=== PATIENT | female | born 1970 | race Caucasian/White ===

== ENCOUNTER 2017-07-26 14:13 | Emergency (ER) | payer MEDICARE ==
[2017-07-26 14:25] VITALS: BP 136/78; PULSE 72; RESP 14; TEMP 98.6; O2SAT 100
--- NOTE | 2017-07-26 14:46 | PD ---
HPI Chief Complaint: Fall Time Seen by Provider: 14:45 Travel History International Travel<30 days: No Contact w/Intl Traveler<30days: No Traveled to known affect area: No History of Present Illness HPI 47-year-old female with legal blindness recently moved from [place] , with history of fusion of C4-5-6, in 2008, presents to the emergency department status post trip and fall in her new home last evening. Patient is complaining of low back pain, right hand pain, right shoulder pain, and neck pain. Patient states previous use of narcotics including Suboxone, which he has been off of for 2 weeks and does not want to return on 2. Patient feels tingling in the right hand similar to previous pain from her radicular symptoms. She is able to ambulate with difficulty. She denies numbness or tingling in the lower extremities. Denies bowel or bladder change. Denies headache or loss of consciousness. She states she did not hit her head. Pain is 7 out of 10. Patient denies chest or abdominal pain. She has no known drug allergies. [facility] Past Medical History Respiratory: Yes (COPD) Social History Alcohol Use: Yes Tobacco Use: No Substance Use: No Allergies-Medications (Allergen,Severity, Reaction): Coded Allergies: No Known Allergies (Unverified , 07/26/17) Reported Meds & Prescriptions Reported Meds & Active Scripts Active Baclofen 10 Mg Tab 10 Mg PO Q8HR Prednisone 20 Mg Tab 20 Mg PO BID 5 Days Review of Systems Except as stated in HPI: all other systems reviewed are Neg General / Constitutional: No: Fever Eyes: No: Visual changes HENT: No: Headaches Cardiovascular: No: Chest Pain or Discomfort Respiratory: No: Shortness of Breath Gastrointestinal: No: Abdominal Pain Genitourinary: No: Dysuria Musculoskeletal: Positive: Arthralgias, Limited ROM, Pain Skin: No Rash Neurologic: No: Weakness Psychiatric: No: Depression Endocrine: No: Polydipsia Hematologic/Lymphatic: No: Easy Bruising Physical Exam Narrative GENERAL: Patient appears in mild distress. SKIN: Warm and dry. Normal color. Normal turgor. No obvious signs of trauma noted. HEAD: Atraumatic. Normocephalic. Nontender. EYES: Pupils equal and round. No scleral icterus. No injection or drainage. ENT: No nasal bleeding or discharge. Mucous membranes pink and moist. No dental injury. Pharynx is clear. Airways patent NECK: Trachea midline. Patient has bony tenderness but no step-off. Cervical spine is placed in immobilization. CT scan is ordered. CARDIOVASCULAR: Regular rate and rhythm. RESPIRATORY: No accessory muscle use. Clear to auscultation. Breath sounds equal bilaterally. GASTROINTESTINAL: Abdomen soft, non-tender, nondistended. Hepatic and splenic margins not palpable. MUSCULOSKELETAL: Extremities without clubbing, cyanosis, or edema. No obvious deformities. 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 Patient has pain with palpation along the right shoulder bilaterally without specific point tenderness noted. Range of motion is intact. Patient has generalized lower lumbar pain without bony tenderness or point tenderness. Negative straight leg raise pain bilaterally in the lower extremities. NEUROLOGICAL: Awake and alert. No obvious cranial nerve deficits. Motor grossly within normal limits. Five out of 5 muscle strength in the arms and legs. Normal speech. PSYCHIATRIC: Appropriate mood and affect; insight and judgment normal. Data Data Last Documented VS Vital Signs Date Time Temp Pulse Resp B/P (MAP) Pulse Ox O2 Delivery O2 Flow Rate FiO2 07/26/17 14:25 98.6 72 14 136/78 (97) 100 Orders Orders Apply Cervical Collar (07/26/17 14:26) Ct Brain W/O Iv Contrast(Rout) (07/26/17 ) Ct Cerv Spine W/O Contrast (07/26/17 ) Shoulder, Complete (>2vws) (07/26/17 ) Hand, Complete (Rth3zuf) (07/26/17 ) Spine, Lumbar - Ltd (Ap & Lat) (07/26/17 ) Prednisone (Deltasone) (07/26/17 15:30) Baclofen (Lioresal) (07/26/17 15:30) Ed Discharge Order (07/26/17 16:18) [facility] Medical Decision Making Medical Screen Exam Complete: Yes Emergency Medical Condition: Yes Differential Diagnosis Mechanical fall. Right hand pain. Right shoulder pain. Neck pain. Low back pain. Possible fracture. Possible radicular symptoms. Narrative Course Patient is medically stable at time of exam. X-rays of the right hand, right shoulder, lumbar spine, and CT of the cervical spine ordered in triage. X-rays the lumbar spine, right hand, right shoulder, are within normal limits per radiologist. Cervical spine CT showed no acute process. Patient is given prednisone 40 mg p.o. now Patient is also given baclofen 20 mg p.o. Patient is continued on prednisone 20 mg twice daily 5 days. Patient also given baclofen 10 mg 3 times daily #30. Patient is recommended to wear the cervical collar for comfort as needed. Patient is to use heat and ice as discussed. Patient to follow-up with local primary care physician and neurologist/ neurosurgeon as needed. Diagnosis Primary Impression: Fall Qualified Codes: W19.XXXA - Unspecified fall, initial encounter Referrals: [facility] Primary [facility] PO Patient Instructions: General Instructions Additional Instructions: X-rays the lumbar spine, right hand, right shoulder, are within normal limits per radiologist. Cervical spine CT showed no acute process. Patient is given prednisone 40 mg p.o. now Patient is also given baclofen 20 mg p.o. Patient is continued on prednisone 20 mg twice daily 5 days. Patient also given baclofen 10 mg 3 times daily #30. Patient is recommended to wear the cervical collar for comfort as needed. Patient is to use heat and ice as discussed. Patient to follow-up with local primary care physician and neurologist/ neurosurgeon as needed. Med/Other Pt SpecificInfo: Prescription(s) given Scripts Baclofen (Baclofen) 10 Mg Tab 10 MG PO Q8HR, #30 TAB 0 Refills Prov: Chi Prince MD 07/26/17 Prednisone (Prednisone) 20 Mg Tab 20 MG PO BID for 5 Days, #10 TAB 0 Refills Prov: Chi Prince MD 07/26/17 Disposition: 01 DISCHARGE HOME Condition: Stable Hosea Chery Jul 26, 2017 14:46
--- NOTE | 2017-07-26 15:06 | RADRPT ---
EXAM DATE/TIME: 07/26/2017 14:47 [facility] COMPARISON: No previous studies available for comparison. INDICATIONS : Right hand pain; fall today. MEDICAL HISTORY : None. SURGICAL HISTORY : None. ENCOUNTER: Initial ACUITY: 1 day PAIN SCORE: 3/10 LOCATION: Right hand. FINDINGS: Three view examination of the right hand demonstrates no soft tissue swelling, dislocation, or fractu re. The carpal bones appear intact. Scattered degenerative changes. Bony mineralization is normal. CONCLUSION: No acute fracture. Suresh Laughlin MD on July 26, 2017 at 15:05 Board Certified Radiologist. This report was verified electronically.
--- NOTE | 2017-07-26 15:06 | RADRPT ---
EXAM DATE/TIME: 07/26/2017 14:58 [facility] COMPARISON: No previous studies available for comparison. INDICATIONS : Trauma. Fell 2 days ago. Head and neck pain. RADIATION DOSE: 33.32 CTDIvol (mGy) MEDICAL HISTORY : Chronic obstructive pulmonary disease. SURGICAL HISTORY : Fusion, cervical. ENCOUNTER: Initial ACUITY: 2 days PAIN SCALE: 7/10 LOCATION: cranial TECHNIQUE: Multiple contiguous axial images were obtained of the head. Using automated exposure control and adj ustment of the mA and/or kV according to patient size, radiation dose was kept as low as reasonably a chievable to obtain optimal diagnostic quality images. DICOM format image data is available electro nically for review and comparison. FINDINGS: CEREBRUM: The ventricles are normal for age. No evidence of midline shift, mass lesion, hemorrhage or acute in farction. No extra-axial fluid collections are seen. POSTERIOR FOSSA: The cerebellum and brainstem are intact. The 4th ventricle is midline. The cerebellopontine angle i s unremarkable. EXTRACRANIAL: The visualized portion of the orbits is intact. SKULL: The calvaria is intact. No evidence of skull fracture. CONCLUSION: No acute intracranial disease. Suresh Laughlin MD on July 26, 2017 at 15:04 Board Certified Radiologist. This report was verified electronically.
--- NOTE | 2017-07-26 15:07 | RADRPT ---
EXAM DATE/TIME: 07/26/2017 14:48 [facility] COMPARISON: No previous studies available for comparison. INDICATIONS : Low back pain; fall today. MEDICAL HISTORY : None. SURGICAL HISTORY : None. ENCOUNTER: Initial ACUITY: 1 day PAIN SCORE: 5/10 LOCATION: Lumbar spine. FINDINGS: Two view examination was performed. There are five non-rib bearing vertebral bodies. The vertebral bodies are in normal alignment without evidence of subluxation or scoliosis. Degenerative disc diseas e at L2-3. Minimal wedging at L1.. The pedicles are intact. Bony mineralization is normal. No frac ture is identified. CONCLUSION: 1. Minimal wedging at L1 likely physiologic. 2. No compression fracture. 3. Degenerative changes L2-3. Suresh Laughlin MD on July 26, 2017 at 15:06 Board Certified Radiologist. This report was verified electronically.
--- NOTE | 2017-07-26 15:13 | RADRPT ---
EXAM DATE/TIME: 07/26/2017 14:45 [facility] COMPARISON: No previous studies available for comparison. INDICATIONS : Right shoulder pain; fall today. MEDICAL HISTORY : None. SURGICAL HISTORY : None. ENCOUNTER: Initial ACUITY: 1 day PAIN SCORE: 9/10 LOCATION: Right shoulder. FINDINGS: 4 views of the right shoulder demonstrate no fracture or dislocation. The acromioclavicular joint is intact but demonstrates mild osteoarthritis change. The visualized soft tissues demonstrate no abnorm ality. Visualized portions of the right lung are clear. No displaced rib fracture is seen. Cervical spine barth rdware is present. CONCLUSION: No acute right shoulder abnormality is identified. Jung Rinaldi MD on July 26, 2017 at 15:11 Board Certified Radiologist. This report was verified electronically.
[2017-07-26] MEDS ORDERED: BACLOFEN 20 MG TAB PO ONE (15:30)
[2017-07-26] MEDS ORDERED: predniSONE 20 MG TAB PO ONE (15:30)
--- NOTE | 2017-07-26 16:03 | RADRPT ---
EXAM DATE/TIME: 07/26/2017 14:58 [facility] COMPARISON: No previous studies available for comparison. INDICATIONS : Trauma. Fell 2 days ago. Head and neck pain. RADIATION DOSE: 17.87 CTDIvol (mGy) MEDICAL HISTORY : Chronic obstructive pulmonary disease. SURGICAL HISTORY : Fusion, cervical. ENCOUNTER: Initial ACUITY: 2 days PAIN SCALE: 7/10 LOCATION: neck TECHNIQUE: Volumetric scanning of the cervical spine was performed. Multiplanar reconstructions in the sagittal, coronal and oblique axial planes were performed. Using automated exposure control and adjustment o f the mA and/or kV according to patient size, radiation dose was kept as low as reasonably achievable to obtain optimal diagnostic quality images. DICOM format image data is available electronically f or review and comparison. FINDINGS: The sagittal reconstructions demonstrate normal alignment and normal prevertebral soft tissues. The d ens is intact and there is a normal atlantoaxial relationship. The axial images demonstrate that the vertebral bodies and posterior elements are intact. The soft ti ssues are within normal limits. There is no evidence of acute fracture or malalignment. CONCLUSION: Negative trauma CT. Charles Garg MD on July 26, 2017 at 16:00 Board Certified Radiologist. This report was verified electronically.
[2017-07-26] MEDS ORDERED: BACL10TA PO (16:18)
[2017-07-26] MEDS ORDERED: PRED20 PO (16:18)
== END 2017-07-26 17:14 | disposition home or self-care (01) ==
LOC: NEPD 14:13
DX: M54.5 Low back pain (principal); M79.641 Pain in right hand; M25.511 Pain in right shoulder; M54.2 Cervicalgia; R20.2 Paresthesia of skin; M51.36 Other intervertebral disc degeneration, lumbar region; H54.8 Legal blindness, as defined in USA
CPT/HCPCS: 70450; 72100; 72125; 73030; 73130; 99284; J7512

== ENCOUNTER 2017-07-29 20:00 | Emergency (ER) | payer MEDICARE, MEDICAID ==
[~2017-07-29] VITALS: Ht 167.6 cm; Wt 76.0 kg
[~2017-07-29 20:00] MED LIST: BACL10TA PO; PRED20 PO
[2017-07-29 20:19] VITALS: BP 109/56; PULSE 93; RESP 18; TEMP 98.3; O2SAT 100
[2017-07-29] MEDS ORDERED: SODIUM CHLOR 0.9% 1000 ML INJ 1,000 ML IV SCH (22:45)
[2017-07-29] MEDS ORDERED: KETOROLAC TROMETHAMINE 30 MG/ML (IVP) VIAL IVP ONE (22:45)
[2017-07-29] MEDS ORDERED: SODIUM CHLORIDE 0.9% FLUSH 10 ML FLUSH IV FLUSH PRN (22:45)
[2017-07-29 23:32] LABS: AUTOMATED NEUTROPHIL # 6.7 TH/MM3 (1.8-7.7); BASOPHIL # 0.1 TH/MM3 (0-0.2); BASOPHIL % 0.6 % (0.0-2.0); EOSINOPHIL # 0.1 TH/MM3 (0-0.4); EOSINOPHIL % 0.8 % (0.0-4.0); HEMATOCRIT 39.9 % (35.0-46.0); HEMOGLOBIN 13.8 GM/DL (11.6-15.3); LYMPH % 36.3 % (9.0-44.0); LYMPHOCYTE # 4.2 TH/MM3 (1.0-4.8); MEAN CELL VOLUME 88.8 FL (80.0-100.0); MEAN CORPUSCULAR HEMOGLOBIN 30.8 PG (27.0-34.0); MEAN CORPUSCULAR HGB CONC 34.7 % (32.0-36.0); MONO % 5.2 % (0.0-8.0); MONOCYTE # 0.6 TH/MM3 (0-0.9); NEUT % 57.1 % (16.0-70.0); PLATELET COUNT 327 TH/MM3 (150-450); RED BLOOD COUNT 4.49 MIL/MM3 (4.00-5.30); WHITE BLOOD COUNT 11.7 TH/MM3 (4.0-11.0)
[2017-07-29 23:36] LABS: INTERNATIONAL NORMALIZED RATIO 1.2 RATIO; PROTHROMBIN TIME - PATIENT 11.7 SEC (9.8-11.6)
[2017-07-29] MEDS ORDERED: BUPR4MIS SL (23:41)
[2017-07-29 23:44] LABS: BILIRUBIN, URINE NEG (NEG); BLOOD, URINE LARGE (NEG); GLUCOSE,URINE NEG (NEG); KETONE, URINE NEG (NEG); MUCUS URINE FEW /lpf (OCC); NITRITE,URINE NEG (NEG); PH, URINE 6.5 (5.0-8.5); SQUAMOUS EPITHELIAL CELL URINE 1 /hpf (0-5); URINE COLOR YELLOW (YELLW/STRAW); URINE LEUKOCYTE ESTERASE MOD (NEG)
[2017-07-29 23:51] LABS: ALKALINE PHOSPHATASE 41 U/L (45-117); TOTAL BILIRUBIN ADULT 0.4 MG/DL (0.2-1.0); TOTAL PROTEIN 7.2 GM/DL (6.4-8.2)
[2017-07-30 00:15] LABS: ALBUMIN 4.2 GM/DL (3.4-5.0); ALT (GPT) 9 U/L (10-53); AST (GOT) 10 U/L (15-37); BICARBONATE 24.3 MEQ/L (21.0-32.0); BLOOD UREA NITROGEN 11 MG/DL (7-18); CALCIUM 8.6 MG/DL (8.5-10.1); CHLORIDE 109 MEQ/L (98-107); GLOMERULAR FILTRATION RATE 90 ML/MIN (>89); GLUCOSE,RANDOM 103 MG/DL (74-106); SODIUM (NA) 139 MEQ/L (136-145)
--- NOTE | 2017-07-30 00:59 | PD ---
HPI Chief Complaint: Psychiatric Symptoms Time Seen by Provider: 22:37 Travel History International Travel<30 days: No Contact w/Intl Traveler<30days: No Traveled to known affect area: No History of Present Illness HPI Patient is a 47 year old female who comes in complaining of abdominal pain. She says she is normally on Suboxone, but someone put it into storage, and she has not had it in 2 weeks. She says she has had the right-sided abdominal pain for the past few days. She also complains of chronic pain all over. She denies fever or chills. She has not had any nausea or vomiting. She has not taken anything else for her pain. Severity is mild to moderate. [facility] Past Medical History Anxiety: Yes Depression: Yes Glaucoma: Yes Medical other: Yes (legally blind) Respiratory: Yes (COPD) ?: Not Past Surgical History Gynecologic Surgery: Yes (TUBAL LIGATION ) Neurologic Surgery: Yes (ANTERIOR CERVICAL FUSION AND "SKULL" SX?) Other Surgery: Yes (BILAT EYE SX WITH "SHUNTS" PER PT ) Social History Alcohol Use: Yes (occ) Tobacco Use: No Substance Use: No Allergies-Medications (Allergen,Severity, Reaction): Coded Allergies: diphenhydramine (Verified Adverse Reaction, Unknown, UNKNOWN, 07/29/17) R/T TBI Reported Meds & Prescriptions Reported Meds & Active Scripts Active Reported Suboxone Sublingual Film (Buprenorphine-Naloxone Sublingual Film) 4-1 Mg Film 1 Film SL Unique ID number required: Review of Systems Except as stated in HPI: all other systems reviewed are Neg General / Constitutional: No: Fever, Chills HENT: No: Headaches, Lightheadedness Cardiovascular: No: Chest Pain or Discomfort Respiratory: No: Shortness of Breath Gastrointestinal: Positive: Abdominal Pain, No: Nausea, Vomiting Musculoskeletal: Positive: Pain, No: Edema Skin: No Rash, No Change in Pigmentation Neurologic: No: Weakness, Dizziness Physical Exam Narrative GENERAL: Awake and alert, in no acute distress. SKIN: Focused skin assessment warm/dry. No wounds or signs of infection. HEAD: Atraumatic. Normocephalic. EYES: Pupils equal and round. No scleral icterus. EOMI. ENT: Mucous membranes pink and moist. NECK: Trachea midline. No JVD. CARDIOVASCULAR: Regular rate and rhythm. No murmur appreciated. RESPIRATORY: No accessory muscle use. Clear to auscultation. Breath sounds equal bilaterally. GASTROINTESTINAL: Abdomen soft, nondistended. Minimal tenderness to the RUQ, no rebound or guarding. MUSCULOSKELETAL: No obvious deformities. No clubbing. No cyanosis. No edema. NEUROLOGICAL: Awake and alert. No obvious cranial nerve deficits. Motor grossly within normal limits. Normal speech. PSYCHIATRIC: Appropriate mood and affect; insight and judgment normal. Data Data Last Documented VS Vital Signs Date Time Temp Pulse Resp B/P (MAP) Pulse Ox O2 Delivery O2 Flow Rate FiO2 07/29/17 20:19 98.3 93 18 109/56 (73) 100 Orders Orders Complete Blood Count With Diff (07/29/17 22:45) Comprehensive Metabolic Panel (07/29/17 22:45) Lipase (07/29/17 22:45) Prothrombin Time / Inr (Pt) (07/29/17 22:45) Act Partial Throm Time (Ptt) (07/29/17 22:45) Urinalysis - C+S If Indicated (07/29/17 22:45) Ct Abd/Pel W Iv Contrast(Rout) (07/29/17 22:45) Iv Access Insert/Monitor (07/29/17 22:45) Ecg Monitoring (07/29/17 22:45) Oximetry (07/29/17 22:45) Sodium Chlor 0.9% 1000 Ml Inj (Ns 1000 M (07/29/17 22:45) Sodium Chloride 0.9% Flush (Ns Flush) (07/29/17 22:45) Ketorolac Inj (Toradol Inj) (07/29/17 22:45) Labs Laboratory Tests Test 07/29/17 22:55 White Blood Count 11.7 TH/MM3 Red Blood Count 4.49 MIL/MM3 Hemoglobin 13.8 GM/DL Hematocrit 39.9 % Mean Corpuscular Volume 88.8 FL Mean Corpuscular Hemoglobin 30.8 PG Mean Corpuscular Hemoglobin Concent 34.7 % Red Cell Distribution Width 14.0 % Platelet Count 327 TH/MM3 Mean Platelet Volume 8.0 FL Neutrophils (%) (Auto) 57.1 % Lymphocytes (%) (Auto) 36.3 % Monocytes (%) (Auto) 5.2 % Eosinophils (%) (Auto) 0.8 % Basophils (%) (Auto) 0.6 % Neutrophils # (Auto) 6.7 TH/MM3 Lymphocytes # (Auto) 4.2 TH/MM3 Monocytes # (Auto) 0.6 TH/MM3 Eosinophils # (Auto) 0.1 TH/MM3 Basophils # (Auto) 0.1 TH/MM3 CBC Comment DIFF FINAL Differential Comment Prothrombin Time 11.7 SEC Prothromb Time International Ratio 1.2 RATIO Activated Partial Thromboplast Time 23.5 SEC Urine Color YELLOW Urine Turbidity CLEAR Urine pH 6.5 Urine Specific Apex 1.019 Urine Protein TRACE mg/dL Urine Glucose (UA) NEG mg/dL Urine Ketones NEG mg/dL Urine Occult Blood LARGE Urine Nitrite NEG Urine Bilirubin NEG Urine Urobilinogen LESS THAN 2.0 MG/DL Urine Leukocyte Esterase MOD Urine RBC /hpf Urine WBC 3 /hpf Urine Squamous Epithelial Cells 1 /hpf Urine Mucus FEW /lpf Microscopic Urinalysis Comment CULT NOT INDICATED Blood Urea Nitrogen 11 MG/DL Creatinine 0.70 MG/DL Random Glucose 103 MG/DL Total Protein 7.2 GM/DL Albumin 4.2 GM/DL Calcium Level 8.6 MG/DL Alkaline Phosphatase 41 U/L Aspartate Amino Transf (AST/SGOT) 10 U/L Alanine Aminotransferase (ALT/SGPT) 9 U/L Total Bilirubin 0.4 MG/DL Sodium Level 139 MEQ/L Potassium Level 3.7 MEQ/L Chloride Level 109 MEQ/L Carbon Dioxide Level 24.3 MEQ/L Anion Gap 6 MEQ/L Estimat Glomerular Filtration Rate 90 ML/MIN Lipase 244 U/L [facility] Medical Decision Making Medical Screen Exam Complete: Yes Emergency Medical Condition: Yes Differential Diagnosis cholecystitis vs pancreatitis vs cholelithiasis vs GERD vs drug seeking Narrative Course Patient is a 47-year-old female who comes in complaining of right upper quadrant pain. Patient repeatedly mentions that she has lost her Suboxone and she has a lot of chronic pain issues. Exam shows minimal right upper quadrant tenderness. IV established, labs sent. Labs show no acute abnormalities. Given IV fluids and Toradol. CT abdomen and pelvis ordered. Diagnosis Primary Impression: Abdominal pain Qualified Codes: R10.11 - Right upper quadrant pain Lynne Peace MD Jul 30, 2017 00:59
[2017-07-30] MEDS ORDERED: IOHEXOL 350 MG/ML 10 ML VIAL (for RAD DIAG) IVCONTRAST ONE (01:11)
--- NOTE | 2017-07-30 01:37 | RADRPT ---
EXAM DATE/TIME: 07/30/2017 00:56 [facility] COMPARISON: No previous studies available for comparison. INDICATIONS : Right upper abdominal pain. IV CONTRAST: 100 cc Omnipaque 350 (iohexol) IV ORAL CONTRAST: No oral contrast ingested. RADIATION DOSE: 8.89 CTDIvol (mGy) MEDICAL HISTORY : Chronic obstructive pulmonary disease. SURGICAL HISTORY : Fusion, cervical. ENCOUNTER: Initial ACUITY: 1 day PAIN SCALE: 4/10 LOCATION: Right abdomen TECHNIQUE: Volumetric scanning of the abdomen and pelvis was performed. Using automated exposure control and ad justment of the mA and/or kV according to patient size, radiation dose was kept as low as reasonably achievable to obtain optimal diagnostic quality images. DICOM format image data is available electro nically for review and comparison. FINDINGS: LOWER LUNGS: The visualized lower lungs are clear. LIVER: Homogeneous density without lesion. There is no dilation of the biliary tree. No calcified gallston es in a contracted gallbladder. SPLEEN: Normal size without lesion. PANCREAS: Within normal limits. KIDNEYS: Normal in size and shape. There is no mass, stone or hydronephrosis. ADRENAL GLANDS: Within normal limits. VASCULAR: There is no aortic aneurysm. BOWEL/MESENTERY: No dilated loops of small or large bowel. The appendix is identified in the right lower quadrant and has a normal appearance. No evidence of free fluid. ABDOMINAL WALL: Within normal limits. RETROPERITONEUM: There is no lymphadenopathy. BLADDER: No wall thickening or mass. REPRODUCTIVE: Anteverted uterus. INGUINAL: There is no lymphadenopathy or hernia. MUSCULOSKELETAL: Within normal limits for patient age. CONCLUSION: Negative CT abdomen/pelvis with contrast. Javi Ramon MD on July 30, 2017 at 1:34 Board Certified Radiologist. This report was verified electronically.
[2017-07-30] MEDS ORDERED: ZOFR4TAB PO (02:00)
[2017-07-30] MEDS ORDERED: ONDANSETRON HCL 4 MG/2 ML VIAL IV PUSH ONE (02:00)
[2017-07-30] MEDS ORDERED: CEPH-460 PO (02:00)
--- NOTE | 2017-07-30 02:05 | PD ---
Physical Exam Date Seen by Provider: Jul 30, 2017 Time Seen by Provider: 02:02 Narrative GENERAL: This is a well-nourished, well-developed patient, in no apparent distress. SKIN: No rashes, ecchymoses or lesions. Warm and dry. HEAD: Atraumatic. Normocephalic. EYES: PERRL, EOMI, no discharge or injection. No scleral icterus. EARS: Clear NOSE: Nasal turbinates appear normal. THROAT: Mucosa pink and moist. Airway patent. NECK: Trachea midline. supple, moves head freely. LUNGS: Clear to auscultation. CV: Regular in rhythm. ABDOMEN: Soft nontender. No guarding or rebound. EXT: No clubbing cyanosis or edema. Data Data Last Documented VS Vital Signs Date Time Temp Pulse Resp B/P (MAP) Pulse Ox O2 Delivery O2 Flow Rate FiO2 07/29/17 20:19 98.3 93 18 109/56 (73) 100 Orders Orders Complete Blood Count With Diff (07/29/17 22:45) Comprehensive Metabolic Panel (07/29/17 22:45) Lipase (07/29/17 22:45) Prothrombin Time / Inr (Pt) (07/29/17 22:45) Act Partial Throm Time (Ptt) (07/29/17 22:45) Urinalysis - C+S If Indicated (07/29/17 22:45) Ct Abd/Pel W Iv Contrast(Rout) (07/29/17 22:45) Iv Access Insert/Monitor (07/29/17 22:45) Ecg Monitoring (07/29/17 22:45) Oximetry (07/29/17 22:45) Sodium Chlor 0.9% 1000 Ml Inj (Ns 1000 M (07/29/17 22:45) Sodium Chloride 0.9% Flush (Ns Flush) (07/29/17 22:45) Ketorolac Inj (Toradol Inj) (07/29/17 22:45) Iohexol 350 Inj (Omnipaque 350 Inj) (07/30/17 01:11) Ed Discharge Order (07/30/17 01:59) Ondansetron Inj (Zofran Inj) (07/30/17 02:00) Hydroxyzine Pamoate (Vistaril) (07/30/17 02:00) Labs Laboratory Tests Test 07/29/17 22:55 White Blood Count 11.7 TH/MM3 Red Blood Count 4.49 MIL/MM3 Hemoglobin 13.8 GM/DL Hematocrit 39.9 % Mean Corpuscular Volume 88.8 FL Mean Corpuscular Hemoglobin 30.8 PG Mean Corpuscular Hemoglobin Concent 34.7 % Red Cell Distribution Width 14.0 % Platelet Count 327 TH/MM3 Mean Platelet Volume 8.0 FL Neutrophils (%) (Auto) 57.1 % Lymphocytes (%) (Auto) 36.3 % Monocytes (%) (Auto) 5.2 % Eosinophils (%) (Auto) 0.8 % Basophils (%) (Auto) 0.6 % Neutrophils # (Auto) 6.7 TH/MM3 Lymphocytes # (Auto) 4.2 TH/MM3 Monocytes # (Auto) 0.6 TH/MM3 Eosinophils # (Auto) 0.1 TH/MM3 Basophils # (Auto) 0.1 TH/MM3 CBC Comment DIFF FINAL Differential Comment Prothrombin Time 11.7 SEC Prothromb Time International Ratio 1.2 RATIO Activated Partial Thromboplast Time 23.5 SEC Urine Color YELLOW Urine Turbidity CLEAR Urine pH 6.5 Urine Specific [place] 1.019 Urine Protein TRACE mg/dL Urine Glucose (UA) NEG mg/dL Urine Ketones NEG mg/dL Urine Occult Blood LARGE Urine Nitrite NEG Urine Bilirubin NEG Urine Urobilinogen LESS THAN 2.0 MG/DL Urine Leukocyte Esterase MOD Urine RBC /hpf Urine WBC 3 /hpf Urine Squamous Epithelial Cells 1 /hpf Urine Mucus FEW /lpf Microscopic Urinalysis Comment CULT NOT INDICATED Blood Urea Nitrogen 11 MG/DL Creatinine 0.70 MG/DL Random Glucose 103 MG/DL Total Protein 7.2 GM/DL Albumin 4.2 GM/DL Calcium Level 8.6 MG/DL Alkaline Phosphatase 41 U/L Aspartate Amino Transf (AST/SGOT) 10 U/L Alanine Aminotransferase (ALT/SGPT) 9 U/L Total Bilirubin 0.4 MG/DL Sodium Level 139 MEQ/L Potassium Level 3.7 MEQ/L Chloride Level 109 MEQ/L Carbon Dioxide Level 24.3 MEQ/L Anion Gap 6 MEQ/L Estimat Glomerular Filtration Rate 90 ML/MIN Lipase 244 U/L [facility] Medical Record Reviewed: Yes Supervised Visit with JENNA: Yes Interpretation(s) CT abdomen and pelvis: Negative for acute intra-abdominal process. Laboratory Tests Test 07/29/17 22:55 White Blood Count 11.7 TH/MM3 Red Blood Count 4.49 MIL/MM3 Hemoglobin 13.8 GM/DL Hematocrit 39.9 % Mean Corpuscular Volume 88.8 FL Mean Corpuscular Hemoglobin 30.8 PG Mean Corpuscular Hemoglobin Concent 34.7 % Red Cell Distribution Width 14.0 % Platelet Count 327 TH/MM3 Mean Platelet Volume 8.0 FL Neutrophils (%) (Auto) 57.1 % Lymphocytes (%) (Auto) 36.3 % Monocytes (%) (Auto) 5.2 % Eosinophils (%) (Auto) 0.8 % Basophils (%) (Auto) 0.6 % Neutrophils # (Auto) 6.7 TH/MM3 Lymphocytes # (Auto) 4.2 TH/MM3 Monocytes # (Auto) 0.6 TH/MM3 Eosinophils # (Auto) 0.1 TH/MM3 Basophils # (Auto) 0.1 TH/MM3 CBC Comment DIFF FINAL Differential Comment Prothrombin Time 11.7 SEC Prothromb Time International Ratio 1.2 RATIO Activated Partial Thromboplast Time 23.5 SEC Urine Color YELLOW Urine Turbidity CLEAR Urine pH 6.5 Urine Specific [place] 1.019 Urine Protein TRACE mg/dL Urine Glucose (UA) NEG mg/dL Urine Ketones NEG mg/dL Urine Occult Blood LARGE Urine Nitrite NEG Urine Bilirubin NEG Urine Urobilinogen LESS THAN 2.0 MG/DL Urine Leukocyte Esterase MOD Urine RBC /hpf Urine WBC 3 /hpf Urine Squamous Epithelial Cells 1 /hpf Urine Mucus FEW /lpf Microscopic Urinalysis Comment CULT NOT INDICATED Blood Urea Nitrogen 11 MG/DL Creatinine 0.70 MG/DL Random Glucose 103 MG/DL Total Protein 7.2 GM/DL Albumin 4.2 GM/DL Calcium Level 8.6 MG/DL Alkaline Phosphatase 41 U/L Aspartate Amino Transf (AST/SGOT) 10 U/L Alanine Aminotransferase (ALT/SGPT) 9 U/L Total Bilirubin 0.4 MG/DL Sodium Level 139 MEQ/L Potassium Level 3.7 MEQ/L Chloride Level 109 MEQ/L Carbon Dioxide Level 24.3 MEQ/L Anion Gap 6 MEQ/L Estimat Glomerular Filtration Rate 90 ML/MIN Lipase 244 U/L Differential Diagnosis . Narrative Course CT scan of the abdomen and pelvis is negative for acute intra-abdominal process. Patient states that she has had a new sexual partner now for the last 2 weeks has been engaging in intercourse. She states that since then she has noted increase urinary symptoms. I have informed the patient that there is some mildly elevated white count and a large amount of blood in her urine and she will be treated for potential UTI. She also reports feeling nauseous, vomiting and diarrhea which is associated with her withdrawal from Suboxone. I have agreed to give her a one-time dose of Vistaril here in the ER and a prescription for Zofran to take at home. This is drug withdrawal, UTI Diagnosis Primary Impression: Abdominal pain Qualified Codes: R10.11 - Right upper quadrant pain Additional Impressions: Drug withdrawal Qualified Codes: F11.23 - Opioid dependence with withdrawal UTI Referrals: [facility] 3 days Patient Instructions: General Instructions Additional Instruction: Rest. Increase fluids. Zofran for nausea. Keflex. Follow up with a primary care doctor in the next 3-5 days. Return to the ER if any problems. Med/Other Pt SpecificInfo: Prescription(s) given Scripts Cephalexin (Keflex) 500 Mg Cap 500 MG PO Q12H for Infection for 5 Days, #10 CAP 0 Refills Prov: Lynne Peace MD 07/30/17 Ondansetron (Zofran) 4 Mg Tab 4 MG PO Q6HR Y for NAUSEA OR VOMITING, #6 TAB 0 Refills Prov: Lynne Peace MD 07/30/17 Disposition: 01 DISCHARGE HOME Condition: Stable Noel Ramirez Jul 30, 2017 02:05
== END 2017-07-30 02:22 | disposition home or self-care (01) ==
LOC: NEPD 20:00
DX: R10.11 Right upper quadrant pain (principal); F11.23 Opioid dependence with withdrawal; N39.0 Urinary tract infection, site not specified; F32.9 Major depressive disorder, single episode, unspecified; J44.9 Chronic obstructive pulmonary disease, unspecified; Z88.8 Allergy status to other drugs, medicaments and biological substances
CPT/HCPCS: 74177; 80053; 81001; 83690; 85025; 85610; 85730; 96361; 96374; 96375; 99284; J1885; J2405; J7030; Q9967

== ENCOUNTER 2017-08-15 14:32 | Inpatient (IN) | payer OTHER, MEDICARE ==
[~2017-08-15 14:32] MED LIST changes: -BACL10TA PO; +BUPR4MIS SL; +CEPH-460 PO; -PRED20 PO; +ZOFR4TAB PO
[2017-08-15 14:52] VITALS: BP 128/109; PULSE 90; RESP 18; TEMP 98.6; O2SAT 98
[2017-08-15 15:45] LABS: BILIRUBIN, URINE NEG (NEG); BLOOD, URINE NEG (NEG); GLUCOSE,URINE NEG (NEG); KETONE, URINE TRACE mg/dL (NEG); MUCUS URINE FEW /lpf (OCC); NITRITE,URINE NEG (NEG); PH, URINE 6.5 (5.0-8.5); SQUAMOUS EPITHELIAL CELL URINE 20 /hpf (0-5); URINE COLOR YELLOW (YELLW/STRAW); URINE LEUKOCYTE ESTERASE NEG (NEG)
[2017-08-15 15:55] LABS: BICARBONATE 18.9 MEQ/L (21.0-32.0); BLOOD UREA NITROGEN 11 MG/DL (7-18); CALCIUM 8.9 MG/DL (8.5-10.1); CHLORIDE 106 MEQ/L (98-107); CREATININE 0.63 MG/DL (0.50-1.00); GLOMERULAR FILTRATION RATE 101 ML/MIN (>89); GLUCOSE,RANDOM 86 MG/DL (74-106); SODIUM (NA) 135 MEQ/L (136-145)
[2017-08-15 16:08] LABS: AUTOMATED NEUTROPHIL # 7.3 TH/MM3 (1.8-7.7); BASOPHIL # 0.1 TH/MM3 (0-0.2); BASOPHIL % 0.5 % (0.0-2.0); EOSINOPHIL % 0.4 % (0.0-4.0); HEMATOCRIT 42.4 % (35.0-46.0); HEMOGLOBIN 14.3 GM/DL (11.6-15.3); LYMPH % 24.2 % (9.0-44.0); LYMPHOCYTE # 2.5 TH/MM3 (1.0-4.8); MEAN CELL VOLUME 91.3 FL (80.0-100.0); MEAN CORPUSCULAR HEMOGLOBIN 30.9 PG (27.0-34.0); MEAN CORPUSCULAR HGB CONC 33.8 % (32.0-36.0); MEAN PLATELET VOLUME 8.3 FL (7.0-11.0); MONO % 5.1 % (0.0-8.0); MONOCYTE # 0.5 TH/MM3 (0-0.9); NEUT % 69.8 % (16.0-70.0); PLATELET COUNT 328 TH/MM3 (150-450); RED BLOOD COUNT 4.64 MIL/MM3 (4.00-5.30); RED CELL DISTRIBUTION WIDTH 14.6 % (11.6-17.2); WHITE BLOOD COUNT 10.5 TH/MM3 (4.0-11.0)
[2017-08-15] MEDS ORDERED: DIVA250T PO (16:30)
[2017-08-15] MEDS ORDERED: SERT-132 PO (16:30)
[2017-08-15] MEDS ORDERED: SUBO8MIS SL (16:30)
[2017-08-15] MEDS ORDERED: LINA290C PO (16:30)
[2017-08-15] MEDS ORDERED: CLON1TAB PO (16:30)
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
[2017-08-15 19:13] VITALS: BP 138/67; PULSE 67; RESP 16; O2SAT 99
[2017-08-16 02:30] VITALS: BP 115/78; PULSE 72; RESP 16; O2SAT 98
[2017-08-16 09:17] VITALS: BP 132/66; PULSE 84; RESP 18; TEMP 98.6; O2SAT 98
[2017-08-16] MEDS ORDERED: MAGNESIUM HYDROXIDE SUSP 30 ML CUP PO PRN (11:15)
[2017-08-16] MEDS ORDERED: ALUMINUM/MAGNESIUM/SIMETH 30 ML CUP PO PRN (11:15)
[2017-08-16] MEDS ORDERED: hydrOXYzine HCL 50 MG TAB PO PRN (11:15)
[2017-08-16 13:25] LABS: BICARBONATE 21.8 MEQ/L (21.0-32.0); CALCIUM 8.7 MG/DL (8.5-10.1); CREATININE 0.52 MG/DL (0.50-1.00)
[2017-08-16] MEDS ORDERED: SENN8.6T36 PO (14:51)
[2017-08-16] MEDS ORDERED: LORazepam 2 MG/ML VIAL IV PUSH PRN ×4 (15:30)
[2017-08-16] MEDS ORDERED: FLUMAZENIL 0.5 MG/5 ML VIAL IV PUSH PRN (15:30)
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
[2017-08-16] MEDS ORDERED: PILL SPLITTER OTHER PRN (16:00)
--- NOTE | 2017-08-16 16:22 | PD.CONS ---
HPI Service [facility] Hospitalists Consult Requested By Dr. Perdomo Reason for Consult Medical management Primary Care Physician No Primary Care Physician Diagnoses: History of Present Illness The patient is a 47 year old female who presented to the emergency department for evaluation of increased depression and suicidality. She is admitted to the inpatient psychiatric unit. Hospitalist consult was requested for medical management. She has a history of blindness secondary to open-angle glaucoma. She reports chronic rectocele diagnosed in 2012. She denies chest pain or dyspnea. Denies nausea or vomiting. She reports chronic headaches. Review of Systems Constitutional: DENIES: Fever, Chills, Night Sweats Eyes: DENIES: Blurred vision, Vision loss Ears, nose, mouth, throat: DENIES: Hearing loss Respiratory: DENIES: Cough, Wheezing, Sputum production, Shortness of breath Cardiovascular: DENIES: Chest pain, Palpitations, Dyspnea on Exertion, Lower Extremity Edema Gastrointestinal: DENIES: Abdominal pain, Constipation, Diarrhea, Nausea, Vomiting Genitourinary: DENIES: Urinary frequency, Urinary incontinence, Urgency, Hematuria, Dysuria, Nocturia Musculoskeletal: DENIES: Joint pain, Muscle aches Integumentary: DENIES: Pruritus, Rash Hematologic/lymphatic: DENIES: Bruising Neurologic: DENIES: Headache Past Family Social History Allergies: Coded Allergies: diphenhydramine (Verified Adverse Reaction, Unknown, UNKNOWN, 08/15/17) R/T TBI Past Medical History Blindness, open angle glaucoma 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 Denies alcohol use. Reports remote history of IV drug abuse. States that she has been clean for the last few years on Suboxone. Physical Exam Vital Signs Vital Signs Date Time Temp Pulse Resp B/P (MAP) Pulse Ox O2 Delivery O2 Flow Rate FiO2 08/16/17 09:17 98.6 84 18 132/66 (88) 98 08/16/17 09:05 08/16/17 02:30 72 16 115/78 (90) 98 Room Air 08/15/17 19:13 67 16 138/67 (90) 99 Room Air Physical Exam GENERAL: Well-nourished, well-developed female in no acute distress. HEENT: Normocephalic, atraumatic. No scleral icterus. No injection or drainage. Oropharynx is clear. Mucous membranes are moist. CARDIOVASCULAR: Regular rate and rhythm without murmurs, gallops, or rubs. RESPIRATORY: Clear to auscultation. No wheezes, rales, or rhonchi. Breathing is non-labored. GASTROINTESTINAL: Abdomen soft, non-tender, nondistended. EXTREMITIES: No lower extremity edema. No calf tenderness. PSYCH: Alert and oriented x 3. Laboratory Laboratory Tests Test 08/16/17 12:57 Blood Urea Nitrogen 8 Creatinine 0.52 Random Glucose 87 Calcium Level 8.7 Sodium Level 138 Potassium Level 3.5 Chloride Level 106 Carbon Dioxide Level 21.8 Anion Gap 10 Estimat Glomerular Filtration Rate 126 Beta HCG, Qualitative LESS THAN 1 Result Diagram: 08/15/17 1511 08/16/17 1257 Assessment and Plan Assessment and Plan 1. Depression, suicidality: Management per psychiatry. 2. History of substance abuse: On Suboxone as outpatient. 3. Chronic constipation: Continue senna, Linzess. [facility] will sign off. Please reconsult if needed. Keaton Santana MD Aug 16, 2017 16:22
[2017-08-16] MEDS: ACETAMINOPHEN 325 MG TAB PO PRN (17:56)
[2017-08-16 18:23] VITALS: BP 117/66; PULSE 71; RESP 18; TEMP 98.1; O2SAT 98
[2017-08-16 18:25] VITALS: BP 117/66; PULSE 71; RESP 18; TEMP 98.1; O2SAT 98
[2017-08-16] MEDS: SERTRALINE HCL 50 MG TAB PO SCH (20:29)
[2017-08-16] MEDS: REMOVE OLD NICOTINE PATCH T-DERMAL SCH (20:30)
[2017-08-16] MEDS: LORazepam 1 MG TAB PO PRN (21:07)
[2017-08-17] MEDS: ACETAMINOPHEN 325 MG TAB PO PRN ×3 (04:48→21:49)
[2017-08-17] MEDS: LORazepam 1 MG TAB PO PRN ×2 (05:03→10:51)
[2017-08-17 05:47] VITALS: BP 100/60; PULSE 66; RESP 20; TEMP 97.2; O2SAT 99
[2017-08-17] MEDS: SENNOSIDES 8.6 MG TAB PO SCH (08:53)
[2017-08-17] MEDS: DIVALPROEX SODIUM DELAYED RELEASE 250 MG TAB PO SCH (08:54)
[2017-08-17] MEDS: LINACLOTIDE 290 MCG PO SCH (08:57)
[2017-08-17] MEDS: SERTRALINE HCL 50 MG TAB PO SCH ×2 (08:58→21:40)
[2017-08-17] MEDS: NICOTINE 21 MG/24 HR PATCH T-DERMAL SCH (09:00)
[2017-08-17] MEDS ORDERED: (Linaclotide (Linzess) 290 MCG) PO SCH (09:00)
--- NOTE | 2017-08-17 09:20 | HHI.PYPN ---
Subjective Chief Complaint: Depressed mood Remarks Patient seen and examined with nurse. Chart reviewed. Case discussed with nursing staff. On my exam, patient says that she is "trying to stay positive." She denies any SI or HI. Denies any AVH. Somewhat medication seeking for controlled substances, namely temazepam and Ambien but is willing to accept melatonin for sleep. No side effects from medications. Mildly tremulous but no other acute physical complaints. Review of Systems Except as stated in HPI: all other systems reviewed are Neg Mental Status Examination Appearance: Appropriate Consciousness: Alert Orientation: x4 Motor Activity: Other (mildly tremulous. No mydriasis, no diaphoresis, no tongue fasciculations, no other signs of GABAergic withdrawal. No other motor abnormalities noted.) Speech: Unremarkable Language: Adequate Fund of Knowledge: Adequate Attention and Concentration: Adequate Memory: Unremarkable Mood: Other (depressed) Affect: Blunt Thought Process & Associations: Intact, Logical, Linear Thought Content: Appropriate Hallucination Type: None Delusion Type: None Suicidal Ideation: No Suicidal Plan: No Suicidal Intention: No Homicidal Ideation: No Homicidal Plan: No Homicidal Intention: No Insight: Fair Judgment: Impulsive Results Labs Test 08/16/17 12:57 Blood Urea Nitrogen 8 MG/DL Creatinine 0.52 MG/DL Random Glucose 87 MG/DL Calcium Level 8.7 MG/DL Sodium Level 138 MEQ/L Potassium Level 3.5 MEQ/L Chloride Level 106 MEQ/L Carbon Dioxide Level 21.8 MEQ/L Anion Gap 10 MEQ/L Estimat Glomerular Filtration Rate 126 ML/MIN Beta HCG, Qualitative LESS THAN 1 MIU/ML Labs reviewed. Vitals/IOs Vital Signs Date Time Temp Pulse Resp B/P (MAP) Pulse Ox O2 Delivery O2 Flow Rate FiO2 08/17/17 05:47 97.2 66 20 100/60 (73) 99 08/16/17 02:30 Room Air Assessment & Plan Problem List: (1) Adjustment disorder with depressed mood ICD Codes: F43.21 - Adjustment disorder with depressed mood (2) History of substance abuse ICD Codes: Z87.898 - Personal history of other specified conditions Assessment & Plan Add melatonin as needed for sleep. Continue Zoloft and Depakote as ordered. Hospitalist input noted and appreciated. Continue to monitor on the inpatient unit. Encourage participation in groups and unit activities. Continue other care as ordered. Justification for Cont. Inpt. Risk for decompensation in less restrictive environment. Discharge Planning Pending psychiatric stabilization. Request HC Surrog/Guard Advoc?: No Trace Guardado MD Aug 17, 2017 09:20
[2017-08-17 14:09] LABS: CHOLESTEROL 185 MG/DL (120-200)
[2017-08-17 14:18] LABS: CHOLESTEROL/ HDL RATIO 4.11 RATIO; LDL CHOLESTEROL 116 MG/DL (0-99); TRIGLYCERIDES 118 MG/DL (42-150)
[2017-08-17 17:21] VITALS: BP 108/61; PULSE 86; RESP 20; TEMP 98.3; O2SAT 99
[2017-08-17] MEDS: LORazepam 2 MG TAB PO PRN ×2 (17:22→21:49)
[2017-08-17 18:21] LABS: HEMOGLOBIN A1C 4.9 % (4.3-6.0)
[2017-08-17] MEDS: REMOVE OLD NICOTINE PATCH T-DERMAL SCH (21:00)
[2017-08-18 05:51] VITALS: BP 101/58; PULSE 60; RESP 16; TEMP 97.6; O2SAT 99
[2017-08-18] MEDS: ACETAMINOPHEN 325 MG TAB PO PRN ×2 (09:15→16:13)
[2017-08-18] MEDS: DIVALPROEX SODIUM DELAYED RELEASE 250 MG TAB PO SCH (09:15)
[2017-08-18] MEDS: SENNOSIDES 8.6 MG TAB PO SCH (09:15)
[2017-08-18] MEDS: SERTRALINE HCL 50 MG TAB PO SCH ×2 (09:16→21:04)
[2017-08-18] MEDS: NICOTINE 21 MG/24 HR PATCH T-DERMAL SCH (09:17)
[2017-08-18] MEDS: LINACLOTIDE 290 MCG PO SCH (09:20)
[2017-08-18 11:14] VITALS: BP 109/65; PULSE 81; RESP 17; O2SAT 97
[2017-08-18] MEDS: LORazepam 1 MG TAB PO PRN ×2 (12:33→17:18)
--- NOTE | 2017-08-18 12:38 | HHI.PYPN ---
Subjective Chief Complaint: Depressed mood Remarks Patient seen and examined with nurse. Chart reviewed. Case discussed with nursing staff. On my examination today, the patient is somewhat perseverative on pain and chronic medical issues. It is difficult to redirect her to her psychiatric symptoms. She does not verbalize any SI or HI. No psychotic symptoms. Affect is restricted and dysphoric. She denies side effects from medications. Complains of emesis, some opiate withdrawal symptoms and ongoing constipation, which is chronic. Review of Systems Except as stated in HPI: all other systems reviewed are Neg Mental Status Examination Appearance: Appropriate Consciousness: Alert Orientation: x4 Motor Activity: Other (mild hand tremor, no other signs of GABAergic withdrawal noted. Some lacrimation noted. No other motor abnormalities noted) Speech: Unremarkable Language: Adequate Fund of Knowledge: Adequate Attention and Concentration: Adequate Memory: Unremarkable Mood: Other (dysphoric) Affect: Other (restricted, consistent with mood) Thought Process & Associations: Intact, Logical, Linear Thought Content: Appropriate Hallucination Type: None Delusion Type: None Suicidal Ideation: No (no SI voiced) Homicidal Ideation: No (no HI voiced) Insight: Fair Judgment: Impulsive Results Labs Labs reviewed. Vitals/IOs Vital Signs Date Time Temp Pulse Resp B/P (MAP) Pulse Ox O2 Delivery O2 Flow Rate FiO2 08/18/17 11:14 81 17 109/65 (80) 97 08/18/17 05:51 97.6 08/16/17 02:30 Room Air Assessment & Plan Problem List: (1) Adjustment disorder with depressed mood ICD Codes: F43.21 - Adjustment disorder with depressed mood (2) History of substance abuse ICD Codes: Z87.898 - Personal history of other specified conditions Assessment & Plan Continue Zoloft as ordered. I will add scheduled baclofen as well as clonidine as needed and Zofran as needed for management of opiate withdrawal. I will ask the hospitalist to return for further evaluation of patient's somatic complaints. Continue to monitor on inpatient unit. Continue other medications and care as ordered. Justification for Cont. Inpt. Complicating condition. High risk for decompensation in less restrictive environment. Discharge Planning Pending stabilization Request HC Surrog/Guard Advoc?: No Trace Guardado MD Aug 18, 2017 12:38
[2017-08-18] MEDS ORDERED: ONDANSETRON ODT 4 MG TAB PO PRN (15:15)
[2017-08-18] MEDS: BACLOFEN 10 MG TAB PO SCH ×2 (16:08→21:04)
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
[2017-08-18] MEDS ORDERED: LACTULOSE SYRUP 20 GM/30 ML CUP PO ONE (17:00)
[2017-08-18] MEDS: GABAPENTIN 100 MG CAP PO SCH (17:18)
[2017-08-18 17:40] VITALS: BP 116/59; PULSE 61; RESP 18; TEMP 98.1; O2SAT 99
--- NOTE | 2017-08-18 19:46 | RADRPT ---
EXAM DATE/TIME: 08/18/2017 18:54 [facility] COMPARISON: No previous studies available for comparison. INDICATIONS : Vomiting and abdominal pain. MEDICAL HISTORY : Chronic obstructive pulmonary disease. SURGICAL HISTORY : None. ENCOUNTER: Initial ACUITY: 2 days PAIN SCORE: 4/10 LOCATION: Abdomen FINDINGS: Supine view of the abdomen was performed. The abdominal bowel gas pattern is normal. No abnormal ma sses, calcifications, or organomegaly is seen. CONCLUSION: 1. No acute findings. Focal moderate degenerative change at L2-3 with mild scoliosis. Noel Bob MD on August 18, 2017 at 19:44 Board Certified Radiologist. This report was verified electronically.
[2017-08-18] MEDS: metroNIDAZOLE 500 MG TAB PO SCH (21:04)
[2017-08-18] MEDS: REMOVE OLD NICOTINE PATCH T-DERMAL SCH (21:04)
[2017-08-18] MEDS: MELATONIN 5 MG TAB PO PRN (21:10)
[2017-08-19] MEDS: LORazepam 1 MG TAB PO PRN (02:28)
[2017-08-19 06:18] VITALS: BP 111/60; PULSE 57; RESP 17; TEMP 98.2; O2SAT 98
[2017-08-19] MEDS: GABAPENTIN 100 MG CAP PO SCH ×3 (08:32→17:53)
[2017-08-19] MEDS: DIVALPROEX SODIUM DELAYED RELEASE 250 MG TAB PO SCH (08:33)
[2017-08-19] MEDS: SENNOSIDES 8.6 MG TAB PO SCH (08:33)
[2017-08-19] MEDS: SERTRALINE HCL 50 MG TAB PO SCH ×2 (08:33→20:03)
[2017-08-19] MEDS: metroNIDAZOLE 500 MG TAB PO SCH (08:33)
[2017-08-19] MEDS: BACLOFEN 10 MG TAB PO SCH ×3 (08:33→20:03)
[2017-08-19] MEDS: LINACLOTIDE 290 MCG PO SCH (08:35)
[2017-08-19] MEDS: NICOTINE 21 MG/24 HR PATCH T-DERMAL SCH (08:39)
--- NOTE | 2017-08-19 12:08 | HHI.PYPN ---
Subjective Chief Complaint: Depressed mood Remarks Patient seen and examined with nurse. Chart reviewed. Case discussed with nursing staff who reports the patient is in brighter spirits with decreased pain complaints. Case discussed in treatment team. Counselor reports that she is working on placement for the patient per patient preference. On my examination today, the patient denies SI or HI. Denies AVH. Some complaints of myalgias and craving, and patient is agreeable to titration of baclofen, which she says has helped. Somewhat medication seeking for benzodiazepines, particularly temazepam at night as the patient says that this is the "only thing " that helps with her insomnia. She is dismissive of other alternatives. No side effects from medications. No other physical complaints. Review of Systems Except as stated in HPI: all other systems reviewed are Neg Mental Status Examination Appearance: Appropriate Consciousness: Alert Orientation: x4 Motor Activity: Other (no motor abnormalities noted.) Speech: Unremarkable Language: Adequate Fund of Knowledge: Adequate Attention and Concentration: Adequate Memory: Unremarkable Mood: Other (less dysphoric today) Affect: Appropriate Thought Process & Associations: Intact, Logical, Linear Thought Content: Appropriate Hallucination Type: None Delusion Type: None Suicidal Ideation: No Homicidal Ideation: No Insight: Fair Judgment: Impulsive Results Labs Labs reviewed Vitals/IOs Vital Signs Date Time Temp Pulse Resp B/P (MAP) Pulse Ox O2 Delivery O2 Flow Rate FiO2 08/19/17 06:18 98.2 57 17 111/60 (77) 98 08/16/17 02:30 Room Air Assessment & Plan Problem List: (1) Adjustment disorder with depressed mood ICD Codes: F43.21 - Adjustment disorder with depressed mood (2) History of substance abuse ICD Codes: Z87.898 - Personal history of other specified conditions Assessment & Plan Titrate baclofen to 10 mg 4 times daily. Continue psychotropics as ordered. Hospitalist input noted and appreciated. Continue to monitor on an inpatient unit. Continue other medications and care as ordered. Justification for Cont. Inpt. Medication changes. Risk for decompensation in less restrictive environment. Discharge Planning Possible placement. Case discussed with counselor. Request HC Surrog/Guard Advoc?: No Trace Guardado MD Aug 19, 2017 12:08
[2017-08-19 12:47] LABS: AUTOMATED NEUTROPHIL # 4.4 TH/MM3 (1.8-7.7); BASOPHIL % 0.5 % (0.0-2.0); EOSINOPHIL # 0.1 TH/MM3 (0-0.4); EOSINOPHIL % 0.9 % (0.0-4.0); LYMPH % 26.9 % (9.0-44.0); LYMPHOCYTE # 1.8 TH/MM3 (1.0-4.8); MEAN CELL VOLUME 90.9 FL (80.0-100.0); MEAN CORPUSCULAR HEMOGLOBIN 30.3 PG (27.0-34.0); MEAN CORPUSCULAR HGB CONC 33.3 % (32.0-36.0); MEAN PLATELET VOLUME 8.5 FL (7.0-11.0); MONO % 6.8 % (0.0-8.0); MONOCYTE # 0.5 TH/MM3 (0-0.9); NEUT % 64.9 % (16.0-70.0); PLATELET COUNT 284 TH/MM3 (150-450); RED BLOOD COUNT 4.61 MIL/MM3 (4.00-5.30); WHITE BLOOD COUNT 6.8 TH/MM3 (4.0-11.0)
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
[2017-08-19 17:39] VITALS: BP 130/81; PULSE 84; RESP 18; TEMP 98.4; O2SAT 99
[2017-08-19] MEDS: ACETAMINOPHEN 325 MG TAB PO PRN (20:01)
[2017-08-19] MEDS: MELATONIN 5 MG TAB PO PRN (20:03)
[2017-08-19] MEDS: REMOVE OLD NICOTINE PATCH T-DERMAL SCH (20:04)
[2017-08-20] MEDS: ACETAMINOPHEN 325 MG TAB PO PRN ×2 (04:03→18:14)
[2017-08-20] MEDS: LORazepam 1 MG TAB PO PRN (05:18)
[2017-08-20 06:12] VITALS: BP 120/70; PULSE 71; RESP 18; TEMP 97.4; O2SAT 100
[2017-08-20] MEDS: NICOTINE 21 MG/24 HR PATCH T-DERMAL SCH (09:00)
[2017-08-20] MEDS: BACLOFEN 10 MG TAB PO SCH ×4 (09:28→20:50)
[2017-08-20] MEDS: SENNOSIDES 8.6 MG TAB PO SCH (09:28)
[2017-08-20] MEDS: GABAPENTIN 100 MG CAP PO SCH ×3 (09:29→18:13)
[2017-08-20] MEDS: DIVALPROEX SODIUM DELAYED RELEASE 250 MG TAB PO SCH (09:29)
[2017-08-20] MEDS: SERTRALINE HCL 50 MG TAB PO SCH ×2 (09:33→20:50)
[2017-08-20] MEDS: cloNIDine HCL 0.1 MG TAB PO PRN ×2 (09:46→18:13)
[2017-08-20] MEDS: LINACLOTIDE 290 MCG PO SCH (10:57)
--- NOTE | 2017-08-20 13:52 | HHI.PYPN ---
Subjective Chief Complaint: Depressed mood Remarks Pt seen and discussed with staff. She remains depressed but denies SI/HI. She is compliant with medications and care. No aggression or agitation. Mental Status Examination Appearance: Appropriate Consciousness: Alert Orientation: x4 Motor Activity: Other (no motor abnormalities noted.) Speech: Unremarkable Language: Adequate Fund of Knowledge: Adequate Attention and Concentration: Adequate Memory: Unremarkable Mood: Other (less dysphoric today) Affect: Appropriate Thought Process & Associations: Intact, Logical, Linear Thought Content: Appropriate Hallucination Type: None Delusion Type: None Suicidal Ideation: No Suicidal Plan: No Suicidal Intention: No Homicidal Ideation: No Insight: Fair Judgment: Impulsive Results Vitals/IOs Vital Signs Date Time Temp Pulse Resp B/P (MAP) Pulse Ox O2 Delivery O2 Flow Rate FiO2 08/20/17 06:12 97.4 71 18 120/70 (87) 100 Assessment & Plan Problem List: (1) Adjustment disorder with depressed mood ICD Codes: F43.21 - Adjustment disorder with depressed mood (2) History of substance abuse ICD Codes: Z87.898 - Personal history of other specified conditions Assessment & Plan Continue current tx plan. Estimated LOS: days Justification for Cont. Inpt. risk of decomepnsation Request HC Surrog/Guard Advoc?: No Bernadette Hand MD Aug 20, 2017 13:52
[2017-08-20 18:16] VITALS: BP 121/71; PULSE 77; RESP 18; TEMP 98.6; O2SAT 99
[2017-08-20] MEDS: REMOVE OLD NICOTINE PATCH T-DERMAL SCH (21:00)
[2017-08-20] MEDS: MELATONIN 5 MG TAB PO PRN (21:20)
[2017-08-21 05:59] VITALS: BP 97/53; PULSE 50; RESP 16; TEMP 97.7; O2SAT 99
[2017-08-21] MEDS: SERTRALINE HCL 50 MG TAB PO SCH ×2 (08:31→21:13)
[2017-08-21] MEDS: DIVALPROEX SODIUM DELAYED RELEASE 250 MG TAB PO SCH ×2 (08:32→09:14)
[2017-08-21] MEDS: GABAPENTIN 100 MG CAP PO SCH ×3 (08:35→18:06)
[2017-08-21] MEDS: BACLOFEN 10 MG TAB PO SCH ×4 (08:35→21:14)
[2017-08-21] MEDS: SENNOSIDES 8.6 MG TAB PO SCH (08:35)
[2017-08-21] MEDS: LINACLOTIDE 290 MCG PO SCH (08:37)
[2017-08-21] MEDS: NICOTINE 21 MG/24 HR PATCH T-DERMAL SCH (08:37)
[2017-08-21] MEDS: ACETAMINOPHEN 325 MG TAB PO PRN ×3 (09:13→21:28)
--- NOTE | 2017-08-21 14:34 | HHI.PYPN ---
Subjective Chief Complaint: Depressed mood Remarks Pt seen and discussed with staff. She has been compliant with medications. No SI /HI. No behavioral problems on unit. She continues to express disappointment that [facility] [place] She reports that depression has lessened and mood has improved. No SI/HI Mental Status Examination Appearance: Appropriate Consciousness: Alert Orientation: x4 Motor Activity: Other (no motor abnormalities noted.) Speech: Unremarkable Language: Adequate Fund of Knowledge: Adequate Attention and Concentration: Adequate Memory: Unremarkable Mood: Other (decreased depression) Affect: Appropriate Thought Process & Associations: Intact, Logical, Linear Thought Content: Appropriate Hallucination Type: None Delusion Type: None Suicidal Ideation: No Suicidal Plan: No Suicidal Intention: No Homicidal Ideation: No Insight: Fair Judgment: Impulsive Results Vitals/IOs Vital Signs Date Time Temp Pulse Resp B/P (MAP) Pulse Ox O2 Delivery O2 Flow Rate FiO2 08/21/17 10:15 16 08/21/17 05:59 97.7 50 97/53 (68) 99 Assessment & Plan Problem List: (1) Adjustment disorder with depressed mood ICD Codes: F43.21 - Adjustment disorder with depressed mood (2) History of substance abuse ICD Codes: Z87.898 - Personal history of other specified conditions Assessment & Plan Continue current tx plan. Estimated LOS: days Justification for Cont. Inpt. risk of decompensation Request HC Surrog/Guard Advoc?: Bernadette Etienne MD Aug 21, 2017 14:34
[2017-08-21 17:54] VITALS: BP 113/67; PULSE 66; RESP 17; TEMP 97.4; O2SAT 100
[2017-08-21] MEDS: REMOVE OLD NICOTINE PATCH T-DERMAL SCH (21:00)
[2017-08-21] MEDS: MELATONIN 5 MG TAB PO PRN (21:14)
[2017-08-22 05:53] VITALS: BP 106/60; PULSE 61; RESP 16; TEMP 98; O2SAT 99
[2017-08-22] MEDS: LINACLOTIDE 290 MCG PO SCH (08:56)
[2017-08-22] MEDS: SENNOSIDES 8.6 MG TAB PO SCH (08:56)
[2017-08-22] MEDS: DIVALPROEX SODIUM DELAYED RELEASE 250 MG TAB PO SCH (08:56)
[2017-08-22] MEDS: NICOTINE 21 MG/24 HR PATCH T-DERMAL SCH (08:56)
[2017-08-22] MEDS: GABAPENTIN 100 MG CAP PO SCH ×2 (08:56→12:22)
[2017-08-22] MEDS: BACLOFEN 10 MG TAB PO SCH ×2 (08:56→12:21)
[2017-08-22] MEDS: SERTRALINE HCL 50 MG TAB PO SCH (08:56)
[2017-08-22] MEDS: ACETAMINOPHEN 325 MG TAB PO PRN (09:14)
[2017-08-22] MEDS ORDERED: DIVA250T PO (10:16)
[2017-08-22] MEDS ORDERED: BACL10TA PO (10:16)
[2017-08-22] MEDS ORDERED: GABA100C4 PO (10:16)
[2017-08-22] MEDS ORDERED: ZOLO50TA PO (10:16)
--- NOTE | 2017-08-22 10:17 | HHI.DS ---
Psychiatry Discharge Summary Inpatient Psychiatric care?: Yes Advance Directive: No Reason Not Provided: Due to Patient Condition Mental Health AdvanceDirective: No Health Care Proxy: No Admission Admission Date Aug 16, 2017 at 08:33 Admission Diagnosis: (1) Adjustment disorder with depressed mood ICD Code: F43.21 - Adjustment disorder with depressed mood (2) History of substance abuse ICD Code: Z87.898 - Personal history of other specified conditions Brief History Ms. Woody is a 47-year-old female with history of depression who presents voluntarily with complaints of depression and suicidal ideation. ED provider note reviewed. Apparently acute stressor was that patient tried to reach out to daughter but she would not speak with her. Reviewing our electronic medical record, I see no previous psychiatric contact within our system. Patient seen and examined with nurse. Chart reviewed. Case discussed with nursing staff. On my examination today, patient says that she has been feeling depressed "for a long time." She says that she feels like a failure. Appetite is somewhat decreased, but the patient does not report any issues with sleep. Concentration somewhat impaired. She denies any SI or HI presently and contracts for safety on the inpatient unit. No hypomanic or manic symptoms. She denies AVH. I can elicit no delusions. Patient does return to chronic pain complaints repeatedly. She reports she was previously on SXN and Klonopin but does not present with bottles of either. She does have bottles of other medications, and I have reviewed these with the nurse. Remainder of the psychiatric ROS is negative. No acute physical complaints. Past psychiatric history: History of depression. Not currently under the care of a psychiatrist. Denies a history of psychiatric admissions except that she went into the hospital in 2012 "to get off crack." She says that she cut her wrist in 2003 but denies any other history of suicide attempts. She reports that Abilify made her confused and she could not tolerate Serzone. Family history: Patient denies any family history of serious mental illness but says that this wasn't talked about in her family. She did have 3 great uncles and her maternal grandmother whom completed suicide. Chemical dependency history: The patient reports a history of abuse of " anything and everything." She denies any substance use presently. Urine toxicology was positive for benzodiazepines, but the patient says that these were prescribed to her, although as I said she did not arrive with a bottle of benzodiazepine. E-FORCSE report reviewed: Early refills noted. 1 instance of multi-sourcing. Fill Date Kghrkky-Hrt-Vgba Qty Days Written Prescriber Name 07/28/2017 CLONAZEPAM 1 MG TABLET 90 30 07/04/2017 PEDDICORD NOVA 07/06/2017 SUBOXONE 8 MG-2 MG SL FILM 60 30 07/04/2017 PEDDICORD NOVA 06/28/2017 CLONAZEPAM 1 MG TABLET 90 30 03/03/2017 PEDDICORD NOVA 06/10/2017 SUBOXONE 8 MG-2 MG SL FILM 60 30 06/03/2017 PEDDICORD NOVA 05/28/2017 CLONAZEPAM 1 MG TABLET 90 30 04/28/2017 PEDDICORD NOVA 05/03/2017 SUBOXONE 8 MG-2 MG SL FILM 60 30 04/29/2017 PEDDICORD NOVA 04/27/2017 CLONAZEPAM 1 MG TABLET 90 30 01/28/2017 BELIA Trevizo MD 04/01/2017 SUBOXONE 8 MG-2 MG SL FILM 60 30 04/01/2017 PEDDICORD NOVA 03/28/2017 CLONAZEPAM 1 MG TABLET 90 30 01/28/2017 BELIA Trevizo MD 03/08/2017 SUBOXONE 8 MG-2 MG SL FILM 60 30 03/03/2017 PEDDICORD NOVA 03/02/2017 CLONAZEPAM 1 MG TABLET 90 30 01/28/2017 BELIA Trevizo MD 02/04/2017 SUBOXONE 8 MG-2 MG SL FILM 50 30 02/03/2017 PEDDICORD NOVA 02/03/2017 SUBOXONE 8 MG-2 MG SL FILM 10 5 02/03/2017 PEDDICORD NOVA 01/28/2017 CLONAZEPAM 1 MG TABLET 90 30 01/28/2017 BELIA Trevizo MD 12/10/2016 SUBOXONE 8 MG-2 MG SL FILM 60 30 10/13/2016 ALEJANDRO Moura DO 11/13/2016 SUBOXONE 8 MG-2 MG SL FILM 60 30 10/13/2016 ALEJANDRO Moura DO 11/05/2016 OXYCODONE-ACETAMINOPHEN 5-325 15 5 11/05/2016 ESTHER Yuen MD 10/17/2016 SUBOXONE 8 MG-2 MG SL FILM 60 30 10/13/2016 ALEJANDRO Moura DO 08/18/2016 SUBOXONE 8 MG-2 MG SL FILM 90 30 06/23/2016 EDUARDO AVALOS MD Social history: The patient is presently staying in an apartment with a roommate. She is originally from [place], [place]. She has an associates degree. She is not presently working but worked for [email or web address] in the past. She is single with 3 children, although she reports that her relationship with her children is strained and this is a source of distress for her. Denies any history. She has been jailed for resisting arrest in the past but denies any history of detention. Denies any active legal issues. She denies any access to guns or firearms. 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 She does allude to a history of trauma but does not wish to describe it any detail. No current PTSD symptoms reported. Tobacco Use In Past 30 Days: 5 or More Cigarettes/Day Alcohol Use: Never Hospital Course Patient was admitted to a locked, inpatient psychiatric unit. A general medical consultation was obtained. Appropriate precautions were in place throughout patient's hospital stay. Patient was seen and examined on the unit by psychiatry and also visited by counselor. Psychotropic medications were adjusted. Patient tolerated medication changes well without side effects. Patient had improvement in presenting psychiatric symptomatology during the course of her hospital stay. There was no evidence of any suicidality or homicidality on the inpatient unit. Patient remained in good behavioral control and was medication compliant. On the day of discharge: Patient seen and examined with nurse. Chart reviewed. Case discussed with nursing staff who reports that patient had verbalized to nursing that patient was "never depressed or suicidal, she was just here to get Suboxone." No behavioral issues overnight. Case discussed with counselor. Counselor has arranged for placement in RETIREMENT. On my examination today, the patient reports that she feels very much improved and is ready for discharge from the inpatient psychiatric unit today. She denies any suicidal or homicidal ideation, intent or plan on direct questioning and contracts for safety. I can elicit no depressive or hypomanic/manic symptoms in this patient at this time, and her affect appears bright and euthymic. She denies any audiovisual hallucinations. I can elicit no delusional material. There is no evidence of any impairment in reality construction. Patient denies side effects from medications. She has no acute physical complaints. Suicide and violence risk assessment on day of discharge both suggest lower imminent risk from mental illness, and the patient's level of function is adequate for planned level of outpatient care. The patient has maximized benefit from this inpatient psychiatric hospital stay. She will be discharged today with psychiatric follow-up as arranged by counselor. Patient is also to follow-up with primary care. I have counseled the patient to abstain from substances of abuse. I have counseled the patient regarding warning signs for need to return to the psychiatric emergency room as part of a general safety plan. Results Blood Pressure 106 / 60 Vital Signs Date Time Temp Pulse Resp B/P (MAP) Pulse Ox O2 Delivery O2 Flow Rate FiO2 08/22/17 05:53 98.0 61 16 106/60 (75) 99 Laboratory Tests Test 08/19/17 11:42 Laboratory Results Test 08/17/17 10:15 Cholesterol Level 185 MG/DL (120-200) HDL Cholesterol 45.0 MG/DL (40.0-60.0) Hemoglobin A1c 4.9 % (4.3-6.0) LDL Cholesterol 116 MG/DL (0-99) Triglycerides Level 118 MG/DL (42-150) Valproic Acid (Depakene) Level 32 MCG/ML (50-100) Summary of Procedures None done Imaging Last Impressions Abdomen X-Ray 08/18/17 0000 Signed Impressions: Service Date/Time: July 18:54 - CONCLUSION: 1. No acute findings. Focal moderate degenerative change at L2-3 with mild scoliosis. Noel Bob MD Pending results at discharge: No Medications # of Antipsychotic meds at D/C: 0 Approp Antipsych med options 1 - Minimum of three failed multiple trials of monotherapy. 2 - Documented plan to taper to monotherapy due to previous use of multiple meds OR cross-taper in progress at D/C. 3 - Documentation of augmentation of Clozapine. 4 - Justification other than those listed in allowable values 1-3, document here : Discharge Discharge Date: Aug 22, 2017 Discharge Diagnosis: (1) Adjustment disorder with depressed mood Diagnosis: Principal (resolved) ICD Code: F43.21 - Adjustment disorder with depressed mood (2) History of substance abuse Diagnosis: Secondary (counseled to quit) ICD Code: Z87.898 - Personal history of other specified conditions Pt Condition on Discharge: Stable Discharge Disposition: ACLF/RETIREMENT Discharge Instructions Diet Instructions: As Tolerated, No Restrictions Activities you can perform: Weight Bearing as Bridgett Scheduled Appointment: as per counselor's notes New Medications: Baclofen (Baclofen) 10 Mg Tab 10 MG PO QID for Health for 15 Days, TAB 1 Refill Gabapentin (Gabapentin) 100 Mg Cap 100 MG PO TID for health for 15 Days, CAP 1 Refill Sertraline (Zoloft) 50 Mg Tab 75 MG PO BID for Mental Health for 15 Days, #45 TAB 1 Refill Continued Medications: Divalproex DR (Divalproex DR) 250 Mg Tabdr 250 MG PO DAILY for Health for 15 Days, #15 TAB 1 Refill (This prescription has been renewed) Linaclotide (Linzess) 290 Mcg Cap 290 MCG PO DAILY, CAP 0 Refills Sennosides (Senna-Tabs) 8.6 Mg Tab 8.6 MG PO DAILY for Constipation, #30 TAB 0 Refills Discontinued Medications: Buprenorphine-Naloxone Sublingual Film (Suboxone Sublingual Film) 8-2 Mg Film 1 FILM SL BID, FILM Unique ID number required: Clonazepam (Clonazepam) 1 Mg Tab 1 MG PO TID, #90 TAB 0 Refills Discharge Time <= 30 minutes Mental Status Examination Appearance: Appropriate Consciousness: Alert Orientation: x4 Motor Activity: Other (no abnormal motor movements noted) Speech: Unremarkable Language: Adequate Fund of Knowledge: Adequate Attention and Concentration: Adequate Memory: Unremarkable Affect: Appropriate, Euthymic Thought Process & Associations: Intact, Logical, Goal directed, Linear Thought Content: Appropriate Hallucination Type: None Delusion Type: None Suicidal Ideation: No Suicidal Plan: No Suicidal Intention: No Homicidal Ideation: No Homicidal Plan: No Homicidal Intention: No Mental Status Exam Remarks Insight and judgment are fair Discharge/Advance Care Plan Health Problems: (1) Adjustment disorder with depressed mood (2) History of substance abuse Goals to promote your health * To prevent worsening of your condition and complications * To maintain your health at the optimal level Directions to meet your goals Take your medications as prescribed Follow your dietary instruction Follow activity as directed Keep your appointments as scheduled Take your immunizations and boosters as scheduled If your symptoms worsen call your PCP, if no PCP go to Urgent Care Center or Emergency Room For 24/ questions related to your inpatient stay or results of tests pending at discharge, please contact Dr. Trace Guardado at Smoking is Dangerous to Your Health. Avoid second hand smoking Trace Guardado MD Aug 22, 2017 10:17
== END 2017-08-22 14:20 | disposition home or self-care (01) | DRG 881 ==
LOC: NED 14:32 → NEDA 08-16 08:33 → H260 08-16 08:40
PROVIDERS: ADMIT Psychiatry & Neurology Psychiatry; ATTEND Psychiatry & Neurology Psychiatry
DX: F43.21 Adjustment disorder with depressed mood (principal); R45.851 Suicidal ideations; G62.9 Polyneuropathy, unspecified; F11.23 Opioid dependence with withdrawal; H54.7 Unspecified visual loss; F41.9 Anxiety disorder, unspecified; H40.10X0 Unspecified open-angle glaucoma, stage unspecified; K59.09 Other constipation; N89.8 Other specified noninflammatory disorders of vagina; K62.3 Rectal prolapse; G47.00 Insomnia, unspecified; F17.210 Nicotine dependence, cigarettes, uncomplicated; F19.11 Other psychoactive substance abuse, in remission; Z63.8 Other specified problems related to primary support group; Z91.5 Personal history of self-harm; Z98.1 Arthrodesis status
CPT/HCPCS: 74018; 80048; 80061; 80164; 80307; 81001; 83036; 84443; 84703; 85025